=== PATIENT | female | born 1975 | race Caucasian/White ===

== ENCOUNTER 2021-11-12 12:53 | Outpatient (CLI) | payer BC | END 2021-11-12 12:54 | disposition home or self-care (01) | LOC: CSHULT 12:53 | PROVIDERS: ATTEND Obstetrics & Gynecology | DX: N63.11 Unspecified lump in the right breast, upper outer quadrant (principal) ==

== ENCOUNTER → 2021-11-19 | Day surgery (SDC) | payer BC | LOC: CSHULT 09:01 | PROVIDERS: ATTEND Internal Medicine | PROC: 0H9T3ZX Drainage of Right Breast, Percutaneous Approach, Diagnostic (ICD-10-PCS; principal; 2021-11-19) | DX: D24.1 Benign neoplasm of right breast (principal) | CPT/HCPCS: 19083; 88305 ==